=== PATIENT | female | born 1970 | race Caucasian/White ===

== ENCOUNTER 2017-01-23 10:28 | Emergency (ER) | payer MEDICARE, BC ==
--- OUTSIDE RECORDS SUMMARY | 2017-01-23 10:40 | XMS REPORT | Continuity of Care Document ---
:1970 Author Organization [facility] ([facility]) Address [address] [place] [address] Phone [phone] Care Team Providers Name Role Phone Ashish Rich Primary Care Provider [phone] Source Comments This disclosure is being made pursuant to the Care Everywhere program, applicable federal and state laws, and may not contain all informaitonavailable regarding this patient.[facility] ([facility]) Active Allergies and Adverse Reactions Allergen Noted Date Severity Reactions Comments Sulfa (Sulfonamide Antibiotics) 09/02/2009 Urticaria (Hives) Current Medications Prescription Sig. Disp. Refills Start Date End Date Status simvastatin (ZOCOR) 40 take 40 mg by Active mg tablet mouth daily. montelukast (SINGULAIR) take 10 mg by Active 10 mg tablet mouth daily. docusate (COLACE) 100 mg Take 100 mg by Active capsule mouth 3 times daily. fexofenadine (LUCRETIA) Take 180 mg by Active 180 mg tablet mouth daily. LISINOPRIL PO Take 5 mg by Active mouth daily. Qzcbdiz-Vll-A Take 1 Tab by Active [id number] mouth daily. (WOMEN'S COMPLEX) Tab [place]-3 Fatty Acids-Fish Take 2 Caps by Active Oil 360-1,200 mg CpDR mouth daily. omeprazole 40 mg Take 40 mg by Active extended release capsule mouth 2 times daily. cyanocobalamin (VITAMIN Take 1,000 mcg Active B-12) 1,000 mcg tablet by mouth daily. albuterol 90 Use 2 Puffs by Active mcg/Actuation inhaler inhalation every 6 hours as needed. metoPROLol succinate 25 Take 25 mg by Active mg XL tablet mouth 2 times daily. spironolactone 25 mg Take 1 tablet 30 tablet 11 06/22/2016 Active tablet (25 mg total) by mouth daily. budesonide-formoterol Use 2 Puffs by Active (SYMBICORT) 160-4.5 inhalation 2 mcg/Actuation inhaler times daily. amoxicillin-clavulanate Take 1 tablet by 5 tablet 0 10/21/2016 Active 875-125 mg per tablet mouth 2 times daily. hydroxychloroquine 200 1 tab twice 60 tablet 11 10/22/2016 Active mg tablet daily furosemide 20 mg tablet Take 3 tablets 270 tablet 3 11/19/2016 Active (60 mg total) by mouth daily. rivaroxaban (XARELTO) 20 Take 1 tablet 90 tablet 3 11/19/2016 Active mg tablet (20 mg total) by mouth daily. Active Problems Problem Noted Date Dry eye syndrome of lacrimal gland 03/22/2016 Sialadenitis 11/24/2015 Parotid gland enlargement 10/01/2015 Overview: L>R. Will refer her to Dr Rudd. Primary osteoarthritis of right knee 03/26/2015 Syncopal episodes 11/10/2012 Overview: Last in 10/2012. Associated with palpitations. Irregular astigmatism 09/12/2012 Dry eye syndrome 09/12/2012 Pulmonary hypertension associated with unclear multi-factorial mechanisms Overview: Risk factors for PH CTD, elevated left heart filling pressure, obesity, sleep apnea and she has high CO Right heart cath 02/2012: Elevated LH filling pressure, high output, elevated TPG but normal PVR. Ao 104/77 LV 104/18 RA 18, RV 70/18, PA 70/42 PA Mean 49, PCWP 28. TD 9.32/3.2 Jennie 8.74/3 Using CO of 9 the PVR is a) using PCWP of 28=2.33, b) using LVEDP of 18=PVR is 3.44. SVC 67.6 sat PA sat 72.3 (main) LPA 66.3 Trial of Adcirca from 01/2013 to 05/15/2013 - on 40 mg she had weight gain and decreased to 20 mg. No improvement in sx and worsening hypoxemia. Lymphedema 02/24/2012 Morbid obesity 02/24/2012 Hyperlipidemia 01/06/2012 Sjogren's syndrome 12/03/2011 Overview: Dry eyes and dry mouth, decreased tear film, enlarged parotid glands and submandibuolar glands. NAYA+, SS-A positive. Bear's test: od >10 mm , os 8 mm On Plaquenil Acrocyanosis 12/03/2011 Overview: No classical tri-color record changer hands, more episodic non temperature dependent acrocyanosis. 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 She passed out at the time. She had been on Coumadin until her surgery in September 2011. Low probability VQ scan in 12/2011. Obesity 09/02/2009 Asthma 09/02/2009 GERD (gastroesophageal reflux disease) 09/02/2009 Umbilical hernia 09/02/2009 JESSICA (obstructive sleep apnea) 09/02/2009 Overview: o2 dependent Resolved Problems Problem Noted Date Resolved Date Sjogren's disease 03/22/2016 05/20/2016 High risk medication use 02/14/2015 05/20/2016 Evaluation for pulmonary hypertension 01/06/2012 02/24/2012 Overview: Not been confirmed by right heart catheterization. Most Recent Encounters Date Type Specialty Providers Description 11/19/2016 Refill Heart and Vascular Jennifer Majano Dx: Localized edema (Primary Dx) 11/19/2016 Erroneous Heart and Vascular Luisa Dennis, Chief Comp: Error Encounter RN Immunizations Name Dates Previously Given Next Due Influenza, unspecified 05/08/2015,05/08/2014,05/10/2013,05/17/2012 Social History Tobacco Use Types Packs/Day Years Used Date Never Smoker Smokeless Tobacco: Never Used Tobacco Cessation:Counseling Given: Yes Comments: Alcohol Use Drinks/Week oz/Week Comments No Last Filed Vital Signs Vital Sign Reading Time Taken Blood Pressure 137/84 10/22/2016 7:46 AM CDT Pulse 84 10/22/2016 7:46 AM CDT Temperature 36.5 C (97.7 F) 10/22/2016 7:46 AM CDT Respiratory Rate 14 10/13/2016 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 Height 1.651 m (5' 5") 10/22/2016 7:46 AM CDT Weight 190.1 kg (419 lb 1.5 oz) 10/22/2016 7:46 AM CDT Body Mass Index 69.74 10/22/2016 7:46 AM CDT Oxygen Saturation 94% 10/13/2016 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 Plan of Care Date Type Specialty Providers Description 03/22/2017 Appointment Ophthalmology - Kate Bagley OD [address] [place] [address] [phone] (Fax) Chief Comp: Patient Specialty Isatu Ortiz [address] [place] [address] [phone] (Fax) Reported Reason For Visit 05/18/2017 Appointment Med Rheumatology Harvinder Moore MD Subj: Appointment [address] [place] [address] [phone] (Fax) Health Maintenance Due Date Last Done Comments Hepatitis B Vaccine (1 of 3 1972 - Primary Series) Tdap Vaccine 1983 Lipid Disorder Screening 1990 MMR Vaccine 1990 Td Vaccine 1990 Pneumococcal Vaccine (1 of 1991 1 - PPSV23) Mammogram 2012 Cervical Cancer Screening 05/21/2021 05/21/2016 Influenza Vaccine: Seasonal Addressed 05/31/2016 (Completed Overridden with the outside this hospital intention of not or clinic), 05/08/2015, completing the topic, 05/08/2014 Additional history exists Results from Last 3 Months Not on file
[2017-01-23] MEDS ORDERED: oxyCODONE HCL/ACETAMINOPHEN 1 TAB TABLET PO ONE (10:47)
[2017-01-23] MEDS ORDERED: DIPHTH,PERTUSS(ACELL),TET VAC 0.5 ML VIAL IM ONE ×2 (10:48→10:53)
[2017-01-23] MEDS ORDERED: oxyCODONE HCL/ACETAMINOPHEN 1 TAB TABLET ONE (10:54)
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
[2017-01-23 11:45] VITALS: BP 128/68
== END 2017-01-23 11:40 | disposition home or self-care (01) ==
LOC: ER 10:28
DX: S80.02XA Contusion of left knee, initial encounter (principal); S60.211A Contusion of right wrist, initial encounter; I10 Essential (primary) hypertension; J45.909 Unspecified asthma, uncomplicated; E78.5 Hyperlipidemia, unspecified; Z86.711 Personal history of pulmonary embolism; M35.00 Sjogren syndrome, unspecified; W10.8XXA Fall (on) (from) other stairs and steps, initial encounter; Y92.22 Religious institution as the place of occurrence of the external cause; Z23 Encounter for immunization